=== PATIENT | male | born 1955 | race African-American/Black ===

== ENCOUNTER 2020-08-20 12:08 | Observation (INO) | payer MEDICARE ==
[~2020-08-20] VITALS: Ht 165.1 cm; Wt 84.8 kg
[2020-08-20 12:49] LABS: HEMOGLOBIN 13.9 gm/dl (14.0-17.5); RED BLOOD COUNT 3.96 M/UL (4.20-5.50); WHITE BLOOD COUNT 8.9 K/UL (4.5-11.0)
[2020-08-20 13:09] LABS: BUN/CREATININE RATIO 9 (0-10)
[2020-08-20] MEDS ORDERED: GLIMEPIRIDE1 MG PO (18:23)
[2020-08-20] MEDS ORDERED: FOLIC ACID 1 MG1 MG PO (18:24)
[2020-08-20] MEDS ORDERED: METHOTREXATE T2.5 MG PO (18:33)
[2020-08-20] MEDS ORDERED: CATAPRES 0.1MG0.1 MG PO (18:33)
[2020-08-22 04:27] LABS: BUN/CREATININE RATIO 16 (0-10)
[2020-08-22 04:32] LABS: HEMOGLOBIN 11.8 gm/dl (14.0-17.5); RED BLOOD COUNT 3.37 M/UL (4.20-5.50); WHITE BLOOD COUNT 11.5 K/UL (4.5-11.0)
[2020-08-22] MEDS ORDERED: LANTUS INS100 UTS/M1 SC ×2 (10:11→18:10)
[2020-08-22] MEDS ORDERED: HYDROCODON-ACE1 EAC2 PO (10:29)
--- NOTE | 2020-08-22 16:33 | NUR ---
PATIENT HAD BLOOD GLUCOSE OF456. PHYSICIAN NOTIFIED AND ORDERED WITH READ BACK TO GIVE 20 UNITS OF LANTIS AND 20 UNITS OF HUMALOG INSULINE.
[2020-08-22] MEDS ORDERED: INSULIN AS100 UNIT/3 SQ (18:10)
== END 2020-08-22 19:13 | disposition home or self-care (01) ==
LOC: ER1 12:08 → CDU 16:55 → M/S 16:55
PROVIDERS: Orthopaedic Surgery; Physician Assistant; ADMIT Internal Medicine
PROC: 3E0T3BZ Introduction of Anesthetic Agent into Peripheral Nerves and Plexi, Percutaneous Approach (ICD-10-PCS; 2020-08-21)
PROC: 0PSG06Z Reposition Left Humeral Shaft with Intramedullary Internal Fixation Device, Open Approach (ICD-10-PCS; principal; 2020-08-21 13:00)
DX: S42.352A Displaced comminuted fracture of shaft of humerus, left arm, initial encounter for closed fracture (principal); G89.18 Other acute postprocedural pain; I10 Essential (primary) hypertension; E11.65 Type 2 diabetes mellitus with hyperglycemia; Z20.822 Contact with and (suspected) exposure to COVID-19; Z79.899 Other long term (current) drug therapy; Z79.84 Long term (current) use of oral hypoglycemic drugs; W01.0XXA Fall on same level from slipping, tripping and stumbling without subsequent striking against object, initial encounter; Y92.019 Unspecified place in single-family (private) house as the place of occurrence of the external cause
CPT/HCPCS: 36415; 71045; 71260; 72125; 73030; 73060; 73090; 73110; 76000; 80048; 82962; 83036; 85025; 96372; 96374; 96375; 96376; 99285; C1713; G0378; J0592; J0690; J1100; J1170; J1650; J1885; J2001; J2270; J2405; J2704; J2795; J3010; J7120; J8610; Q9967; U0002